=== PATIENT | female | born 1990 ===

== ENCOUNTER 2016-04-25 19:51 | Emergency (ER) | payer SELFPAY ==
[2016-04-25 20:52] VITALS: BP 130/94
--- NOTE | 2016-04-25 20:59 | ER Document Report ---
ED Medical Screen (RME) - General Stated Complaint: EAR PAIN Notes: 25 yo female c/o pain and decreased hearing x 2 days. + recent cold symptoms Physical Exam - Vital signs Vitals: Temp Pulse Resp BP 98.0 F 91 18 130/94 H 04/25/16 20:51 04/25/16 20:51 04/25/16 20:51 04/25/16 20:51 Course - Vital Signs Vital signs: Temp Pulse Resp BP Pulse Ox 98.0 F 91 18 130/94 H 04/25/16 20:51 04/25/16 20:51 04/25/16 20:51 04/25/16 20:51
== END 2016-04-25 23:45 | disposition left against medical advice (07) ==
LOC: ER 19:51
DX: H92.09 Otalgia, unspecified ear (principal); H91.90 Unspecified hearing loss, unspecified ear; Z53.20 Procedure and treatment not carried out because of patient's decision for unspecified reasons
CPT/HCPCS: 99281